=== PATIENT | male | born 1945 | race African-American/Black ===

== ENCOUNTER 2021-07-05 19:55 | Emergency (ER) | payer OTHER, MEDICAID ==
[~2021-07-05] VITALS: Ht 185.4 cm; Wt 91.0 kg
[2021-07-05 22:57] LABS: BASOPHILS % 1.1 % (0.0-2.0); EOSINOPHILS % 0.5 % (0.0-5.0); HEMATOCRIT. 33.1 % (42.0-52.0); HEMOGLOBIN. 9.9 g/dL (14.0-18.0); LYMPHOCYTES % 21.6 % (20.0-50.0); MEAN CORPUSCULAR HEMOGLOBIN 22.4 pg (28.0-32.0); MEAN CORPUSCULAR VOLUME 74.8 fL (80.0-94.0); MEAN PLATELET VOLUME 8.1 fl (7.4-10.4); NEUTROPHILS % 71.8 % (40.0-76.0); PLATELET 214 x1000/uL (130-400); RED BLOOD CELL COUNT 4.43 mill/uL (4.7-6.1); RED CELL DISTRIBUTION WIDTH 19.4 % (11.6-14.6)
[2021-07-05 23:05] LABS: CHLORIDE 105 mEq/L (98-107)
[2021-07-05] MEDS ORDERED: CLONIDINE 0.2MG TABLET PO NR (23:15)
[2021-07-05] MEDS ORDERED: KETOROLAC 30MG/ML VIAL IV NR (23:15)
[2021-07-06 01:29] LABS: CLARITY URINE CLEAR (CLEAR); COLOR URINE DARK YELLOW (YELLOW); KETONES URINE TRACE (NEGATIVE); LEUKOCYTE ESTERASE URINE 1+ (NEGATIVE); NITRITE URINE POSITIVE (NEGATIVE); OCCULT BLOOD URINE NEGATIVE (NEGATIVE); PROTEIN URINE TRACE (NEGATIVE); SPECIFIC GRAVITY URINE 1.028 (1.005-1.030)
[2021-07-06] MEDS ORDERED: IOHEXOL-300 100 ML BOTTLE ONE (01:31)
[2021-07-06] MEDS ORDERED: FAMO-134 MT (03:30)
[2021-07-06] MEDS ORDERED: DICYCLOMINE 10 MG/5 ML ORAL SYR PO SCH (03:30)
[2021-07-06] MEDS ORDERED: MAGNESIUM/ALUMINUM HYDROXIDE/SIMETHICONE 30ML UDC PO SCH (03:30)
[2021-07-06] MEDS ORDERED: VISCOUS LIDOCAINE 2% 15 ML UDC PO SCH (03:30)
[2021-07-06] MEDS ORDERED: HYDROCODONE/ACETAMINOPHEN 10/325MG TABLET PO SCH (03:30)
[2021-07-06] MEDS ORDERED: FAMOTIDINE 20MG/2ML VIAL IV SCH (03:30)
[2021-07-06 09:30] VITALS: BP 149/65
[2021-07-06] MEDS ORDERED: AMOX-424 MT (14:21)
[2021-07-06] MEDS ORDERED: DOCU-138 MT (14:21)
[2021-07-08] MEDS ORDERED: PANT40TA51 PO (16:15)
[2021-07-08] MEDS ORDERED: FERR-63 PO (16:15)
== END 2021-07-06 09:59 | disposition home or self-care (01) ==
LOC: ER 19:55
DX: K59.00 Constipation, unspecified (principal); I10 Essential (primary) hypertension; E11.9 Type 2 diabetes mellitus without complications; I25.2 Old myocardial infarction
CPT/HCPCS: 36415; 74018; 74177; 80053; 81003; 83690; 85025; 96374; 99285; J1885; Q9967

== ENCOUNTER → 2021-07-09 | Emergency (ER) | payer OTHER, MEDICAID ==
[~2021-07-09] VITALS: Ht 182.9 cm; Wt 76.0 kg
[~2021-07-09] MED LIST: DOCU-138 MT; FERR-63 PO; PANT40TA51 PO
[2021-07-09 22:21] VITALS: BP 164/66
== END | disposition left against medical advice (07) ==
LOC: ER 21:33
DX: R10.9 Unspecified abdominal pain (principal); Z53.21 Procedure and treatment not carried out due to patient leaving prior to being seen by health care provider
CPT/HCPCS: 99281

== ENCOUNTER 2021-11-24 17:07 | Inpatient (IN) | payer OTHER, MEDICAID ==
[~2021-11-24] VITALS: Ht 185.4 cm; Wt 82.6 kg
[2021-11-24] MEDS ORDERED: ACETAMINOPHEN 325MG TABLET PO ONE (18:00)
[2021-11-24 20:00] VITALS: BP 153/69
[2021-11-24] MEDS ORDERED: MORPHINE SULFATE 4 MG/ML CPJ (NOT FOR IM USE) IV STA (21:17)
[2021-11-24 22:06] LABS: BASOPHILS % 0.8 % (0.0-2.0); EOSINOPHILS % 1.2 % (0.0-5.0); HEMATOCRIT. 26.9 % (42.0-52.0); HEMOGLOBIN. 7.9 g/dL (14.0-18.0); LYMPHOCYTES % 19.5 % (20.0-50.0); MEAN CORPUSCULAR HEMOGLOBIN 20.1 pg (28.0-32.0); MEAN CORPUSCULAR VOLUME 68.4 fL (80.0-94.0); MEAN PLATELET VOLUME 8.5 fl (7.4-10.4); MONOCYTES % 6.9 % (2.0-8.0); NEUTROPHILS % 71.6 % (40.0-76.0); PLATELET 203 x1000/uL (130-400); RED BLOOD CELL COUNT 3.93 mill/uL (4.7-6.1); RED CELL DISTRIBUTION WIDTH 20.5 % (11.6-14.6)
[2021-11-24 22:12] LABS: INR 1.1; PROTHROMBIN TIME 11.4 sec (9.6-11.0)
[2021-11-24 22:21] LABS: CHLORIDE 106 mEq/L (98-107)
[2021-11-24 22:33] LABS: PLATELET ESTIMATE NORMAL
[2021-11-25] MEDS ORDERED: DEXTROSE 50% WATER 50ML SYRINGE IV PRN (03:00)
[2021-11-25] MEDS ORDERED: IPRATROPIUM/ALBUTEROL 0.5-3(2.5)MG/3ML NEB HHN PRN (03:00)
[2021-11-25] MEDS ORDERED: ONDANSETRON HCL 4MG/2ML INJ IV PRN (03:00)
[2021-11-25] MEDS ORDERED: MORPHINE SULFATE 4 MG/ML CPJ (NOT FOR IM USE) IV NR (03:15)
[2021-11-25 05:04] LABS: TOTAL IRON BINDING CAPACITY 353 ug/dL (250-450)
[2021-11-25 05:26] LABS: D-DIMER 12.76 mg/L FEU (<0.50); INR 1.1; PROTHROMBIN TIME 11.4 sec (9.6-11.0)
[2021-11-25 05:30] LABS: FOLIC ACID (FOLATE) SERUM 9.5 ng/mL (>5.38)
[2021-11-25] MEDS: INSULIN LISPRO 100 UNITS/ML SUBCUT SCH ×4 (08:20→22:04)
[2021-11-25] MEDS: BLOOD SUGAR DIAGNOSTIC STRIP TEST SCH ×4 (09:07→21:00)
[2021-11-25] MEDS: PANTOPRAZOLE SODIUM 40 MG/VIAL IV SCH (09:23)
[2021-11-25 09:59] LABS: HEMATOCRIT 27.2 % (42.0-52.0); HEMOGLOBIN 7.7 g/dL (14.0-18.0); MEAN CORPUSCULAR HEMOGLOBIN 19.7 pg (28.0-32.0); MEAN CORPUSCULAR VOLUME 69.1 fL (80.0-94.0); PLATELET 182 x1000/uL (130-400); RED BLOOD CELL COUNT 3.93 mill/uL (4.7-6.1); RED CELL DISTRIBUTION WIDTH 20.9 % (11.6-14.6)
[2021-11-25 10:00] VITALS: BP 171/57
[2021-11-25 10:00] LABS: CHLORIDE 110 mEq/L (98-107)
[2021-11-25] MEDS: HYDRALAZINE 20MG/ML VIAL IV PRN (10:23)
[2021-11-25] MEDS: HYDROMORPHONE HCL/PF 2MG/ML CPJ IV PRN ×2 (11:21→17:05)
[2021-11-25 12:00] VITALS: BP 150/56
[2021-11-25] MEDS: FERROUS SULFATE 325MG TABLET PO SCH (13:29)
[2021-11-25] MEDS: AMLODIPINE 10MG TABLET PO SCH (13:29)
[2021-11-25 16:00] VITALS: BP 174/64
[2021-11-25] MEDS: ACETAMINOPHEN 325MG TABLET PO PRN (17:04)
[2021-11-25 20:00] VITALS: BP 153/69
[2021-11-26] VITALS: BP 129/88
[2021-11-26 02:00] VITALS: BP 129/84
[2021-11-26] MEDS: ACETAMINOPHEN 325MG TABLET PO PRN (05:41)
[2021-11-26] MEDS: BLOOD SUGAR DIAGNOSTIC STRIP TEST SCH ×4 (07:10→20:34)
[2021-11-26 07:23] LABS: CHLORIDE 107 mEq/L (98-107)
[2021-11-26 07:25] LABS: BASOPHILS % 0.8 % (0.0-2.0); EOSINOPHILS % 1.7 % (0.0-5.0); HEMATOCRIT. 26.1 % (42.0-52.0); HEMOGLOBIN. 7.8 g/dL (14.0-18.0); LYMPHOCYTES % 17.2 % (20.0-50.0); MEAN CORPUSCULAR HEMOGLOBIN 20.2 pg (28.0-32.0); MEAN CORPUSCULAR VOLUME 67.5 fL (80.0-94.0); MEAN PLATELET VOLUME 8.7 fl (7.4-10.4); MONOCYTES % 7.9 % (2.0-8.0); NEUTROPHILS % 72.4 % (40.0-76.0); PLATELET 180 x1000/uL (130-400); RED BLOOD CELL COUNT 3.86 mill/uL (4.7-6.1); RED CELL DISTRIBUTION WIDTH 20.8 % (11.6-14.6)
[2021-11-26 07:35] LABS: HDL CHOLESTEROL 50 mg/dL (40-59); LDL CHOLESTEROL 106 mg/dL (5-100); PHOSPHORUS 1.9 mg/dL (2.5-4.9)
[2021-11-26] MEDS: INSULIN LISPRO 100 UNITS/ML SUBCUT SCH ×4 (07:40→20:34)
[2021-11-26] MEDS: FERROUS SULFATE 325MG TABLET PO SCH ×3 (07:40→16:46)
[2021-11-26 08:00] VITALS: BP 159/57
[2021-11-26] MEDS: AMLODIPINE 10MG TABLET PO SCH (09:00)
[2021-11-26] MEDS: PANTOPRAZOLE SODIUM 40 MG/VIAL IV SCH (09:41)
[2021-11-26] MEDS ORDERED: SODIUM PHOS,M-BASIC-D-BASIC 20 MM in DEXT 5% WATER 243.3333 ML IV ONE (10:00)
[2021-11-26] MEDS: HYDRALAZINE 20MG/ML VIAL IV PRN (10:19)
[2021-11-26 12:00] VITALS: BP 154/50
[2021-11-26 16:00] VITALS: BP 132/48
[2021-11-26 20:00] VITALS: BP 154/60
[2021-11-26] MEDS ORDERED: NALOXONE HCL 0.4MG/ML VIAL IV PRN (20:15)
[2021-11-27] VITALS: BP 143/89
[2021-11-27] MEDS: HYDROMORPHONE HCL/PF 2MG/ML CPJ IV PRN ×2 (00:06→08:57)
[2021-11-27 04:00] VITALS: BP 142/77
[2021-11-27] MEDS: BLOOD SUGAR DIAGNOSTIC STRIP TEST SCH ×4 (05:02→21:00)
[2021-11-27] MEDS: FERROUS SULFATE 325MG TABLET PO SCH ×3 (05:02→18:54)
[2021-11-27] MEDS: INSULIN LISPRO 100 UNITS/ML SUBCUT SCH ×4 (05:27→21:00)
[2021-11-27 08:00] VITALS: BP 154/72
[2021-11-27] MEDS: PANTOPRAZOLE SODIUM 40 MG/VIAL IV SCH (08:42)
[2021-11-27] MEDS: AMLODIPINE 10MG TABLET PO SCH (08:42)
[2021-11-27 12:00] VITALS: BP 115/64
[2021-11-27 12:25] LABS: BASOPHILS % 0.9 % (0.0-2.0); EOSINOPHILS % 2.7 % (0.0-5.0); HEMATOCRIT. 30.6 % (42.0-52.0); LYMPHOCYTES % 17.4 % (20.0-50.0); MEAN CORPUSCULAR HEMOGLOBIN 20.1 pg (28.0-32.0); MEAN CORPUSCULAR VOLUME 68.5 fL (80.0-94.0); MEAN PLATELET VOLUME 8.9 fl (7.4-10.4); MONOCYTES % 7.3 % (2.0-8.0); NEUTROPHILS % 71.7 % (40.0-76.0); PLATELET 215 x1000/uL (130-400); RED BLOOD CELL COUNT 4.47 mill/uL (4.7-6.1)
[2021-11-27 12:36] LABS: CHLORIDE 104 mEq/L (98-107)
[2021-11-27] MEDS ORDERED: VANCOMYCIN HCL 1 GM/VIAL ONE (13:10)
[2021-11-27] MEDS ORDERED: PROPOFOL 200MG/20ML VIAL IV ONE (13:22)
[2021-11-27] MEDS ORDERED: MIDAZOLAM HCL 2 MG/2 ML VIAL ONE (13:23)
[2021-11-27] MEDS ORDERED: FENTANYL CITRATE/PF 50MCG/ML 2ML VIAL ONE (13:23)
[2021-11-27] MEDS ORDERED: MEPERIDINE HCL/PF 25MG/ML CPJ IV PRN (14:00)
[2021-11-27] MEDS ORDERED: LABETALOL 5MG/ML SYR 20 MG/4 ML SYRINGE IV PRN (14:00)
[2021-11-27] MEDS ORDERED: ONDANSETRON HCL 4MG/2ML INJ IV PRN (14:00)
[2021-11-27] MEDS ORDERED: HYDROMORPHONE HCL/PF 2MG/ML CPJ IV PRN (14:00)
[2021-11-27 16:00] VITALS: BP 151/59
[2021-11-27] MEDS: CEFAZOLIN 2,000 MG in DEXT 5% WATER 100 ML IV SCH ×2 (16:37→22:16)
[2021-11-27 20:00] VITALS: BP 139/55
[2021-11-27] MEDS: KETOROLAC 15MG/ML VIAL IV PRN (23:22)
[2021-11-28] VITALS: BP 132/44
[2021-11-28 04:00] VITALS: BP 142/49
[2021-11-28] MEDS: CEFAZOLIN 2,000 MG in DEXT 5% WATER 100 ML IV SCH ×3 (05:21→23:49)
[2021-11-28] MEDS: BLOOD SUGAR DIAGNOSTIC STRIP TEST SCH ×4 (06:28→21:00)
[2021-11-28] MEDS: INSULIN LISPRO 100 UNITS/ML SUBCUT SCH ×4 (07:17→21:00)
[2021-11-28 07:38] LABS: BASOPHILS % 1.2 % (0.0-2.0); EOSINOPHILS % 3.7 % (0.0-5.0); HEMOGLOBIN. 7.7 g/dL (14.0-18.0); LYMPHOCYTES % 15.7 % (20.0-50.0); MEAN CORPUSCULAR HEMOGLOBIN 20.3 pg (28.0-32.0); MEAN CORPUSCULAR VOLUME 68.3 fL (80.0-94.0); MEAN PLATELET VOLUME 8.7 fl (7.4-10.4); MONOCYTES % 10.4 % (2.0-8.0); PLATELET 179 x1000/uL (130-400); RED BLOOD CELL COUNT 3.81 mill/uL (4.7-6.1); RED CELL DISTRIBUTION WIDTH 20.9 % (11.6-14.6)
[2021-11-28 07:43] LABS: CHLORIDE 104 mEq/L (98-107)
[2021-11-28 07:52] LABS: PHOSPHORUS 2.6 mg/dL (2.5-4.9)
[2021-11-28 08:00] VITALS: BP 147/53
[2021-11-28] MEDS: FERROUS SULFATE 325MG TABLET PO SCH ×3 (08:37→17:54)
[2021-11-28] MEDS: PANTOPRAZOLE SODIUM 40 MG/VIAL IV SCH (08:37)
[2021-11-28] MEDS: AMLODIPINE 10MG TABLET PO SCH (08:37)
[2021-11-28] MEDS: KETOROLAC 15MG/ML VIAL IV PRN (08:39)
[2021-11-28 09:45] LABS: PLATELET ESTIMATE NORMAL
[2021-11-28 11:28] LABS: HEMATOCRIT 27.3 % (42.0-52.0); HEMOGLOBIN 8.1 g/dL (14.0-18.0); MEAN CORPUSCULAR HEMOGLOBIN 20.3 pg (28.0-32.0); PLATELET 173 x1000/uL (130-400); RED BLOOD CELL COUNT 3.96 mill/uL (4.7-6.1); RED CELL DISTRIBUTION WIDTH 20.8 % (11.6-14.6)
[2021-11-28 12:00] VITALS: BP 140/49
[2021-11-28] MEDS ORDERED: HYDRALAZINE 10 MG in SODIUM CHLORIDE 0.9% 49.5 ML IV PRN (12:30)
[2021-11-28] MEDS: ENOXAPARIN 40MG/0.4ML SYR SUBCUT SCH (14:04)
[2021-11-28 16:00] VITALS: BP 137/49
[2021-11-28 20:00] VITALS: BP 143/56
[2021-11-29] VITALS: BP 157/55
[2021-11-29] MEDS: HYDROMORPHONE HCL/PF 2MG/ML CPJ IV PRN (01:20)
[2021-11-29 04:00] VITALS: BP 142/58
[2021-11-29 07:13] LABS: CHLORIDE 105 mEq/L (98-107)
[2021-11-29] MEDS: INSULIN LISPRO 100 UNITS/ML SUBCUT SCH ×4 (07:50→22:36)
[2021-11-29 07:54] LABS: EOSINOPHILS % 3.6 % (0.0-5.0); HEMOGLOBIN. 7.8 g/dL (14.0-18.0); MEAN CORPUSCULAR HEMOGLOBIN 19.9 pg (28.0-32.0); MEAN CORPUSCULAR VOLUME 68.8 fL (80.0-94.0); MEAN PLATELET VOLUME 8.6 fl (7.4-10.4); MONOCYTES % 9.5 % (2.0-8.0); NEUTROPHILS % 68.9 % (40.0-76.0); PLATELET 170 x1000/uL (130-400); RED BLOOD CELL COUNT 3.92 mill/uL (4.7-6.1); RED CELL DISTRIBUTION WIDTH 21.4 % (11.6-14.6)
[2021-11-29 08:00] VITALS: BP 116/55
[2021-11-29] MEDS: BLOOD SUGAR DIAGNOSTIC STRIP TEST SCH ×4 (08:09→21:00)
[2021-11-29] MEDS ORDERED: FAMOTIDINE 20MG/2ML VIAL IV SCH (09:00)
[2021-11-29 12:00] VITALS: BP 123/60
[2021-11-29] MEDS: FERROUS SULFATE 325MG TABLET PO SCH ×3 (12:50→22:31)
[2021-11-29] MEDS: PANTOPRAZOLE 40MG DR TABLET PO SCH (14:35)
[2021-11-29] MEDS: AMLODIPINE 10MG TABLET PO SCH (14:35)
[2021-11-29] MEDS: ENOXAPARIN 40MG/0.4ML SYR SUBCUT SCH (14:46)
[2021-11-29 16:00] VITALS: BP 150/49
[2021-11-29 20:00] VITALS: BP 125/76
[2021-11-29 21:51] LABS: CHLORIDE 105 mEq/L (98-107)
[2021-11-30] VITALS: BP 128/78
[2021-11-30 04:00] VITALS: BP 124/72
[2021-11-30] MEDS: PANTOPRAZOLE 40MG DR TABLET PO SCH (06:39)
[2021-11-30] MEDS ORDERED: HYDROMORPHONE HCL/PF 2MG/ML CPJ IM PRN (07:15)
[2021-11-30] MEDS: INSULIN LISPRO 100 UNITS/ML SUBCUT SCH ×4 (07:50→21:00)
[2021-11-30 07:52] LABS: BASOPHILS % 1.1 % (0.0-2.0); EOSINOPHILS % 2.4 % (0.0-5.0); HEMATOCRIT. 26.8 % (42.0-52.0); HEMOGLOBIN. 7.9 g/dL (14.0-18.0); LYMPHOCYTES % 15.3 % (20.0-50.0); MEAN CORPUSCULAR HEMOGLOBIN 20.3 pg (28.0-32.0); MEAN PLATELET VOLUME 8.8 fl (7.4-10.4); MONOCYTES % 9.7 % (2.0-8.0); NEUTROPHILS % 71.5 % (40.0-76.0); PLATELET 171 x1000/uL (130-400); RED BLOOD CELL COUNT 3.88 mill/uL (4.7-6.1); RED CELL DISTRIBUTION WIDTH 21.3 % (11.6-14.6)
[2021-11-30] MEDS: BLOOD SUGAR DIAGNOSTIC STRIP TEST SCH ×4 (07:58→21:00)
[2021-11-30 08:00] VITALS: BP 115/62
[2021-11-30] MEDS: AMLODIPINE 10MG TABLET PO SCH (08:40)
[2021-11-30] MEDS: FERROUS SULFATE 325MG TABLET PO SCH ×3 (08:40→17:29)
[2021-11-30 09:19] LABS: CHLORIDE 106 mEq/L (98-107)
[2021-11-30] MEDS: TRAMADOL 50MG TABLET PO PRN (10:55)
[2021-11-30 12:00] VITALS: BP 137/48
[2021-11-30] MEDS: ENOXAPARIN 40MG/0.4ML SYR SUBCUT SCH (13:12)
[2021-11-30 16:00] VITALS: BP 136/51
[2021-11-30 20:00] VITALS: BP 132/47
[2021-12-01] VITALS (7 sets, daily range): BP systolic 101–139; BP diastolic 50–57
[2021-12-01 07:15] LABS: HEMATOCRIT 28.4 % (42.0-52.0); HEMOGLOBIN 8.4 g/dL (14.0-18.0); MEAN CORPUSCULAR HEMOGLOBIN 20.6 pg (28.0-32.0); PLATELET 213 x1000/uL (130-400); RED BLOOD CELL COUNT 4.06 mill/uL (4.7-6.1); RED CELL DISTRIBUTION WIDTH 21.9 % (11.6-14.6)
[2021-12-01] MEDS: PANTOPRAZOLE 40MG DR TABLET PO SCH (07:24)
[2021-12-01] MEDS: TRAMADOL 50MG TABLET PO PRN (07:24)
[2021-12-01] MEDS: INSULIN LISPRO 100 UNITS/ML SUBCUT SCH ×4 (07:25→21:00)
[2021-12-01] MEDS: BLOOD SUGAR DIAGNOSTIC STRIP TEST SCH ×4 (07:25→21:00)
[2021-12-01 07:55] LABS: CHLORIDE 105 mEq/L (98-107)
[2021-12-01] MEDS: AMLODIPINE 10MG TABLET PO SCH (08:17)
[2021-12-01] MEDS: FERROUS SULFATE 325MG TABLET PO SCH ×3 (08:17→18:19)
[2021-12-01] MEDS: ENOXAPARIN 40MG/0.4ML SYR SUBCUT SCH (13:32)
[2021-12-01] MEDS: ACETAMINOPHEN 325MG TABLET PO PRN (19:01)
[2021-12-02] VITALS: BP 145/55
== END 2021-12-02 01:30 | DRG 481 ==
LOC: ER 17:07 → MICUSO 11-25 00:15 → 8WST 11-25 10:40 → 6EST 11-28 01:40 → UNDODISIN 12-01 14:05
PROVIDERS: ADMIT Hospitalist; ATTEND Hospitalist
PROC: 0QS704Z Reposition Left Upper Femur with Internal Fixation Device, Open Approach (ICD-10-PCS; principal; 2021-11-27)
DX: S72.002A Fracture of unspecified part of neck of left femur, initial encounter for closed fracture (principal); E46 Unspecified protein-calorie malnutrition; E87.1 Hypo-osmolality and hyponatremia; R65.10 Systemic inflammatory response syndrome (SIRS) of non-infectious origin without acute organ dysfunction; I10 Essential (primary) hypertension; Z20.822 Contact with and (suspected) exposure to COVID-19; G89.29 Other chronic pain; M19.90 Unspecified osteoarthritis, unspecified site; E11.9 Type 2 diabetes mellitus without complications; D50.9 Iron deficiency anemia, unspecified; I25.10 Atherosclerotic heart disease of native coronary artery without angina pectoris; F17.210 Nicotine dependence, cigarettes, uncomplicated; I27.20 Pulmonary hypertension, unspecified; Z68.24 Body mass index [BMI] 24.0-24.9, adult; Z87.11 Personal history of peptic ulcer disease; Z95.5 Presence of coronary angioplasty implant and graft; Z90.49 Acquired absence of other specified parts of digestive tract; Y08.89XA Assault by other specified means, initial encounter; Y93.89 Activity, other specified; Y92.89 Other specified places as the place of occurrence of the external cause; Y99.8 Other external cause status
CPT/HCPCS: 36415; 71045; 73502; 73552; 73562; 73590; 73610; 73630; 73700; 76000; 80048; 80053; 80061; 82607; 82728; 82746; 82962; 83036; 83540; 83550; 83735; 84100; 85025; 85027; 85379; 86850; 86900; 86920; 87426; 93005; 93306; 93970; 94640; 97116; 97162; 97530; 99285; C9113; G0378; J0360; J0690; J1170; J1650; J1815; J1885; J2250; J2270; J2704; J3010; J3370; J3490; J7060